=== PATIENT | female | born 1975 | race Caucasian/White ===

== ENCOUNTER 2019-04-05 23:53 | Emergency (ER) | payer BC ==
[~2019-04-05] VITALS: Ht 162.6 cm; Wt 61.2 kg
== END 2019-04-06 | disposition home or self-care (01) ==
LOC: ER 23:53
DX: S92.411A Displaced fracture of proximal phalanx of right great toe, initial encounter for closed fracture (principal); X50.9XXA Other and unspecified overexertion or strenuous movements or postures, initial encounter; Y93.89 Activity, other specified; Y92.520 Airport as the place of occurrence of the external cause; Y99.8 Other external cause status